=== PATIENT | male | born 1970 | race Caucasian/White ===

== ENCOUNTER 2018-06-11 18:22 | Inpatient (IN) | payer OTHER ==
[2018-06-11] MEDS: HYDROmorphONE 1 MG/ML SYG IV (18:50)
[2018-06-11] MEDS: ONDANSETRON 4 MG INJ IV (18:50)
[2018-06-11] MEDS: CEFTRIAXONE 1 GM/50 ML (PMX) 50 ML IVPB (18:50)
[2018-06-11 19:53] LABS: ADD MAN DIFF? NO
[2018-06-11 19:55] LABS: WHITE BLOOD COUNT 8.6 10^3/ul (4.8-10.8)
[2018-06-11 19:55] LABS: BASOPHILS % 0.4 % (0.0-2.0); EOSINOPHILS # 0.2 10^3/ul (0.0-0.5); EOSINOPHILS % 2.3 % (0.0-7.0); HEMATOCRIT 46.6 % (42.0-52.0); LYMPHOCYTES # 1.9 10^3/ul (0.8-2.9); LYMPHOCYTES % 21.7 % (15.0-51.0); MEAN CORPUSCULAR HEMOGLOBIN 30.8 pg (29.0-33.0); MEAN CORPUSCULAR HGB CONC 34.3 g/dl (32.0-37.0); MEAN CORPUSCULAR VOLUME 89.8 fl (82.0-101.0); MEAN PLATELET VOLUME 10.2 fl (7.4-10.4); MONOCYTE # 0.8 10^3/ul (0.3-0.9); MONOCYTES % 9.2 % (0.0-11.0); NEUTROPHIL # 5.7 10^3/ul (1.6-7.5); PLATELET COUNT 279 10^3/UL (140-415); RED BLOOD COUNT 5.19 10^6/ul (4.70-6.10)
[2018-06-11] MEDS: SOD CHLORIDE 0.9% 500 ML IV (19:56)
[2018-06-11] MEDS: DIPHTH/TET/ACEL PERTUSS (ADULT) 0.5 ML VIAL IM* (19:57)
[2018-06-11 20:00] LABS: INR 0.87; PARTIAL THROMBOPLASTIN TIME 29.8 Sec (25.0-35.0); PROTIME 11.9 Sec (11.9-14.9); PT RATIO 0.9
[2018-06-11] MEDS ORDERED: ONDANSETRON 4 MG INJ IV ×2 (20:00→20:30)
[2018-06-11] MEDS ORDERED: ACETAMINOPHEN 325 MG TAB PO ×2 (20:00→20:30)
[2018-06-11 20:04] LABS: ALANINE AMINOTRANSFERASE 40 IU/L (13-69); ALBUMIN 4.8 g/dl (3.3-4.9); ALBUMIN/GLOBULIN RATIO 1.23; ALKALINE PHOSPHATASE 92 IU/L (42-121); ANION GAP 15 (8-16); ASPARTATE AMINO TRANSFERASE 35 IU/L (15-46); BILIRUBIN,INDIRECT 0.5 mg/dl (0-1.1); BILIRUBIN,TOTAL 0.5 mg/dl (0.2-1.3); BLOOD UREA NITROGEN 21 mg/dl (7-20); CALCIUM 9.3 mg/dl (8.4-10.2); CARBON DIOXIDE 27 mmol/L (21-31); CHLORIDE 104 mmol/L (97-110); CREATININE 0.87 mg/dl (0.61-1.24); GLUCOSE 114 mg/dl (70-220); POTASSIUM 4.5 mmol/L (3.5-5.1); SODIUM 141 mmol/L (135-144); TOTAL PROTEIN 8.7 g/dl (6.1-8.1)
[2018-06-11] MEDS ORDERED: NACL 0.9% 3 ML SYG IV (20:30)
[2018-06-11] MEDS ORDERED: morphine 2 MG INJ IV (20:30)
[2018-06-11] MEDS ORDERED: HYDROCODONE/APAP (5/325) TAB PO (20:30)
[2018-06-11] MEDS: SOD CHLORIDE 0.9% 1,000 ML IV (21:15)
[2018-06-12] MEDS: CEFAZOLIN 1 GM/50 ML (PMX) 50 ML IVPB ×2 (06:16→21:30)
[2018-06-12 07:13] LABS: ADD MAN DIFF? NO
[2018-06-12 07:16] LABS: WHITE BLOOD COUNT 9.5 10^3/ul (4.8-10.8)
[2018-06-12 07:16] LABS: BASOPHILS % 0.3 % (0.0-2.0); EOSINOPHILS # 0.2 10^3/ul (0.0-0.5); EOSINOPHILS % 1.7 % (0.0-7.0); HEMATOCRIT 42.8 % (42.0-52.0); LYMPHOCYTES # 1.4 10^3/ul (0.8-2.9); LYMPHOCYTES % 14.3 % (15.0-51.0); MEAN CORPUSCULAR HEMOGLOBIN 31.4 pg (29.0-33.0); MEAN CORPUSCULAR VOLUME 89.7 fl (82.0-101.0); MEAN PLATELET VOLUME 10.2 fl (7.4-10.4); MONOCYTE # 0.8 10^3/ul (0.3-0.9); MONOCYTES % 8.4 % (0.0-11.0); NEUTROPHIL # 7.1 10^3/ul (1.6-7.5); PLATELET COUNT 254 10^3/UL (140-415); RED BLOOD COUNT 4.77 10^6/ul (4.70-6.10); RED CELL DISTRIBUTION WIDTH 12.1 % (11.5-14.5)
[2018-06-12 07:24] LABS: HEMOGLOBIN A1C 6.2 % (0-5.9)
[2018-06-12 07:47] LABS: ALANINE AMINOTRANSFERASE 43 IU/L (13-69); ALBUMIN 3.7 g/dl (3.3-4.9); ALBUMIN/GLOBULIN RATIO 1.08; ALKALINE PHOSPHATASE 79 IU/L (42-121); ANION GAP 12 (8-16); ASPARTATE AMINO TRANSFERASE 31 IU/L (15-46); BILIRUBIN,INDIRECT 0.6 mg/dl (0-1.1); BILIRUBIN,TOTAL 0.6 mg/dl (0.2-1.3); BLOOD UREA NITROGEN 17 mg/dl (7-20); CALCIUM 8.6 mg/dl (8.4-10.2); CARBON DIOXIDE 28 mmol/L (21-31); CHLORIDE 105 mmol/L (97-110); CHOL/HDL RATIO 4.8 RATIO; CHOLESTEROL 204 mg/dl (100-200); CREATININE 0.84 mg/dl (0.61-1.24); GLUCOSE 91 mg/dl (70-220); HDL CHOLESTEROL 42 mg/dl (27-67); LDL CHOLESTEROL,CALCULATED 146 mg/dl; MAGNESIUM 2.2 mg/dl (1.7-2.5); SODIUM 141 mmol/L (135-144); TOTAL PROTEIN 7.1 g/dl (6.1-8.1); TRIGLYCERIDES 79 mg/dl (0-149)
[2018-06-12 09:08] LABS: CREATINE KINASE 179 IU/L (23-200)
[2018-06-12 09:25] LABS: CK INDEX 0.6; CK-MB 1.01 ng/ml (0.0-2.4); TROPONIN-I < 0.012 ng/ml (0.000-0.120)
[2018-06-12] MEDS: SOD CHLORIDE 0.9% 1,000 ML IV ×2 (10:53)
[2018-06-12] MEDS ORDERED: VANCOMYCIN IV PER PHARMACY XX (11:30)
[2018-06-12] MEDS ORDERED: TETANUS IMMUNE GLOB 250 UNIT SYG IM (12:30)
[2018-06-12] MEDS: LEVOFLOXACIN 500 MG TAB PO (14:12)
[2018-06-12] MEDS: VANCOMYCIN 1.5 GM in SOD CHLORIDE 0.9% 250 ML IVPB (14:58)
[2018-06-12] MEDS: TETANUS IMMUNE GLOB 250 UNIT SYG IM (15:41)
[2018-06-12] MEDS ORDERED: POLYMYXIN/BACITRACIN 1L IRRIG (18:55)
[2018-06-12] MEDS ORDERED: POLYMYXIN B 500000 UNIT INJ (18:55)
[2018-06-12] MEDS ORDERED: CEFAZOLIN 1 GM INJ (19:07)
[2018-06-12] MEDS ORDERED: GLYCOPYRROLATE 0.4 MG INJ (19:07)
[2018-06-12] MEDS ORDERED: NEOSTIGMINE 3 MG/3 ML SYRINGE (19:07)
[2018-06-12] MEDS ORDERED: PROPOFOL 20 ML (19:07)
[2018-06-12] MEDS ORDERED: ROCURONIUM 50 MG INJ (19:07)
[2018-06-12] MEDS ORDERED: MIDAZOLAM 1 MG/ML 2 ML INJ (19:10)
[2018-06-12] MEDS ORDERED: ONDANSETRON 4 MG INJ (19:10)
[2018-06-12] MEDS ORDERED: FENTAnyl 50 MCG/ML VIAL (19:10)
[2018-06-12] MEDS ORDERED: DEXAMETHASONE 4 MG/ML 1 ML INJ (19:11)
[2018-06-12] MEDS: POLYMYXIN/BACITRACIN 1L IRRIG IRR (19:36)
[2018-06-12] MEDS: POLYMYXIN B 500000 UNIT INJ IRR (19:36)
[2018-06-12] MEDS: BACITRACIN 50000 UNITS INJ IRR (19:36)
[2018-06-12] MEDS ORDERED: KETOROLAC 30 MG INJ (19:45)
[2018-06-12] MEDS ORDERED: SUGAMMADEX SODIUM 200 MG/2 ML VIAL IV (19:54)
[2018-06-12] MEDS ORDERED: EPHEDrine SULFATE 50 MG/5 ML SYG IV (20:30)
[2018-06-12] MEDS ORDERED: OXYCODONE/ACETAMINOPHEN (5/325) TAB PO ×2 (20:30)
[2018-06-12] MEDS ORDERED: MEPERIDINE 25 MG INJ IV (20:30)
[2018-06-12] MEDS ORDERED: TRIMETHOBENZAMIDE 100 MG/ML VIAL IM (20:30)
[2018-06-12] MEDS ORDERED: IPRATROPIUM (NEB) 0.5 MG/2.5 ML AMP HHN (20:30)
[2018-06-12] MEDS ORDERED: CEFAZOLIN 1 GM/50 ML (PMX) 50 ML IVPB (20:30)
[2018-06-12] MEDS ORDERED: HYDROmorphONE 1 MG/5 ML IV SYRINGE IV ×3 (20:30)
[2018-06-12] MEDS ORDERED: NACL 0.9% 3 ML SYG IV ×2 (20:30)
[2018-06-12] MEDS ORDERED: morphine 2 MG INJ IV ×2 (20:30)
[2018-06-12] MEDS ORDERED: hydrALAzine 20 MG INJ IV (20:30)
[2018-06-12] MEDS ORDERED: ONDANSETRON 4 MG INJ IV (20:30)
[2018-06-12] MEDS ORDERED: ALBUTEROL 0.083% (NEB) 2.5 MG/3 ML AMP HHN (20:30)
[2018-06-12] MEDS ORDERED: MIDAZOLAM 1 MG/ML 2 ML INJ IV (20:30)
[2018-06-12] MEDS ORDERED: FENTAnyl 50 MCG/ML VIAL IV ×3 (20:30)
[2018-06-12] MEDS ORDERED: LABETALOL HCL 20MG INJ IV (20:30)
[2018-06-12] MEDS ORDERED: DIPHENHYDRAMINE 50 MG INJ IV (20:30)
[2018-06-12] MEDS ORDERED: HYDROCODONE/APAP (5/325) TAB PO ×2 (20:30)
[2018-06-12] MEDS: D5W-0.45 NACL + KCL 20 MEQ 1,000 ML IV (22:03)
[2018-06-12] MEDS: VANCOMYCIN 1 GM 250 ML IVPB (22:45)
[2018-06-13] MEDS: CEFAZOLIN 1 GM/50 ML (PMX) 50 ML IVPB ×2 (05:01→12:12)
[2018-06-13] MEDS: D5W-0.45 NACL + KCL 20 MEQ 1,000 ML IV ×3 (06:08→15:50)
[2018-06-13] MEDS: LEVOFLOXACIN 500 MG TAB PO (06:40)
[2018-06-13] MEDS: VANCOMYCIN 1 GM 250 ML IVPB ×3 (06:40→22:56)
[2018-06-13 07:34] LABS: ADD MAN DIFF? NO
[2018-06-13 07:36] LABS: BASOPHILS % 0.1 % (0.0-2.0); HEMATOCRIT 42.8 % (42.0-52.0); HEMOGLOBIN 14.9 g/dl (14.0-18.0); LYMPHOCYTES # 0.7 10^3/ul (0.8-2.9); LYMPHOCYTES % 6.7 % (15.0-51.0); MEAN CORPUSCULAR HGB CONC 34.8 g/dl (32.0-37.0); MEAN CORPUSCULAR VOLUME 89.2 fl (82.0-101.0); MEAN PLATELET VOLUME 9.7 fl (7.4-10.4); MONOCYTE # 0.4 10^3/ul (0.3-0.9); MONOCYTES % 3.5 % (0.0-11.0); NEUTROPHIL # 9.2 10^3/ul (1.6-7.5); NEUTROPHILS % 89.5 % (39.0-77.0); PLATELET COUNT 263 10^3/UL (140-415); RED CELL DISTRIBUTION WIDTH 11.7 % (11.5-14.5)
[2018-06-13 07:36] LABS: WHITE BLOOD COUNT 10.2 10^3/ul (4.8-10.8)
[2018-06-13 08:05] LABS: ALANINE AMINOTRANSFERASE 33 IU/L (13-69); ALBUMIN 3.6 g/dl (3.3-4.9); ALBUMIN/GLOBULIN RATIO 1.02; ALKALINE PHOSPHATASE 82 IU/L (42-121); ANION GAP 13 (8-16); ASPARTATE AMINO TRANSFERASE 27 IU/L (15-46); BILIRUBIN,INDIRECT 0.6 mg/dl (0-1.1); BILIRUBIN,TOTAL 0.6 mg/dl (0.2-1.3); BLOOD UREA NITROGEN 13 mg/dl (7-20); CALCIUM 8.8 mg/dl (8.4-10.2); CARBON DIOXIDE 27 mmol/L (21-31); CHLORIDE 104 mmol/L (97-110); CREATININE 0.73 mg/dl (0.61-1.24); GLUCOSE 165 mg/dl (70-220); POTASSIUM 4.3 mmol/L (3.5-5.1); SODIUM 140 mmol/L (135-144); TOTAL PROTEIN 7.1 g/dl (6.1-8.1)
[2018-06-13 08:34] LABS: THYROID STIMULATING HORMONE 0.205 MIU/L (0.465-4.680)
[2018-06-13] MEDS ORDERED: ENOXAPARIN 40 MG/0.4 ML SYG SC (09:00)
[2018-06-13] MEDS: ENOXAPARIN 40 MG/0.4 ML SYG SC (10:10)
[2018-06-13 14:17] LABS: VANCOMYCIN,TROUGH 10.4 ug/ml (10.0-20.0)
[2018-06-14] MEDS: LEVOFLOXACIN 500 MG TAB PO (05:34)
[2018-06-14] MEDS: VANCOMYCIN 1 GM 250 ML IVPB (06:02)
[2018-06-14] MEDS ORDERED: ENOXAPARIN 40 MG/0.4 ML SYG SC (09:00)
[2018-06-14] MEDS: ENOXAPARIN 40 MG/0.4 ML SYG SC (09:23)
[2018-06-14] MEDS ORDERED: TRIMETHOPRIM/SULFAMETHOX (DS) TAB PO (21:00)
== END 2018-06-14 16:15 | disposition home health service (06) | DRG 502 ==
LOC: 2NE 20:33 → E/R 18:22 → 2NE 19:54
PROC: 0KQS0ZZ Repair Right Lower Leg Muscle, Open Approach (ICD-10-PCS; principal; 2018-06-12 19:00)
DX: S86.221A Laceration of muscle(s) and tendon(s) of anterior muscle group at lower leg level, right leg, initial encounter (principal); W29.8XXA Contact with other powered hand tools and household machinery, initial encounter; I25.10 Atherosclerotic heart disease of native coronary artery without angina pectoris; Z95.5 Presence of coronary angioplasty implant and graft; I10 Essential (primary) hypertension; I25.2 Old myocardial infarction
CPT/HCPCS: 36415; 71045; 73590; 80053; 80061; 80202; 82550; 82553; 83036; 83735; 84443; 84484; 85025; 85610; 85730; 90389; 90715; 93005; 96374; 96375; 97110; 97116; 97162; 97530; 99285-25; G0378